=== PATIENT | male | born 1960 | race Asian ===

== ENCOUNTER 2019-11-16 15:03 | Inpatient (IN) | payer SELFPAY ==
[~2019-11-16] VITALS: Ht 177.8 cm; Wt 100.6 kg
--- NOTE | 2019-11-16 15:56 | NUR ---
PT UP TO RESTROOM WITH URINE CUP. VERBALIZES UNDERSTANDING OF INSTRUCTIONS FOR COLLECTION. DENIES ANY NEEDS AT THIS TIME.
--- NOTE | 2019-11-16 16:10 | NUR ---
PT ABLE TO PROVIDE URINE SAMPLE, COLLECTED AND SENT AT THIS TIME. BLADDER SCAN REVEALED 0ML RETENTION. PT DENIES ANY NEEDS OR CONCERNS AT THIS TIME. CALL LIGHT IN REACH.
[2019-11-16 16:25] LABS: MICROSCOPIC AUTO
[2019-11-16 16:26] LABS: BASOPHILS # (AUTO) 0.03 x10^3/uL (0-0.1); BASOPHILS % (AUTO) 0 % (0-1); EOSINOPHILS # (AUTO) 0.02 x10^3/uL (0-0.4); EOSINOPHILS % (AUTO) 0 % (1-7); LYMPHOCYTES # (AUTO) 0.68 x10^3/uL (1-3.4); LYMPHOCYTES % (AUTO) 5 % (22-44); MD NO; MEAN CORPUSCULAR HGB CONC 31.8 g/dL (33.2-36.2); MEAN CORPUSCULAR VOLUME 81.7 fL (81-97); MEAN PLATELET VOLUME 7.4 fL (7.4-10.4); MONOCYTES # (AUTO) 1.02 x10^3/uL (0.2-0.8); MONOCYTES % (AUTO) 7 % (2-9); NEUTROPHILS # (AUTO) 12.73 x10^3/uL (1.8-6.8); NEUTROPHILS % (AUTO) 88 % (42-75); PLATELET COUNT 357 x10^3/uL (130-400); RED BLOOD COUNT 5.36 x10^6/uL (4.38-5.82); RED CELL DISTRIBUTION WIDTH 18.1 % (9.4-14.8)
[2019-11-16 16:33] LABS: ANION GAP 12 mmol/L (5-15); CALCIUM 9.1 mg/dL (8.5-10.1); CHLORIDE 96 mmol/L (98-107)
[2019-11-16] MEDS ORDERED: LIDOCAINE 2%,20 ML JEL.PF.APP MM ONE ×2 (18:24→18:30)
--- NOTE | 2019-11-16 18:37 | NUR ---
CATHETER INSERTION ATTEMPTED, CATHETER COILED AND UNABLE TO ADVANCE. ERP NOTIFIED. NEW ORDERS RECEIVED. UROJET APPLIED. WILL REATTEMPT WITH A COUDE.
--- NOTE | 2019-11-16 19:13 | NUR ---
PT RESTING ON GURNEY, MONITORS IN PLACE, SIDERAILS UP X2, DENIES NEEDS, ROWAN CATH DRAINING, CALL LIGHT WITHIN REACH.
[2019-11-16] MEDS ORDERED: BISACODYL 10 MG SUPP PR PRN (21:00)
[2019-11-16] MEDS ORDERED: ACETAMINOPHEN 325 MG TABLET PO PRN (21:00)
[2019-11-16] MEDS ORDERED: ONDANSETRON 2MG/ML, 2ML IVPush PRN (21:00)
[2019-11-16] MEDS ORDERED: LABETALOL 5MG/ML, 20ML IVPush PRN (21:00)
[2019-11-16] MEDS ORDERED: POLYETHYLENE GLYCOL 17 GM PACKET PO PRN (21:00)
[2019-11-16] MEDS ORDERED: hydrALAzine 20 MG/ML, 1ML IVPush PRN (21:00)
[2019-11-16] MEDS ORDERED: DOCUSATE 100 MG CAPSULE PO PRN (21:00)
[2019-11-16] MEDS ORDERED: ONDANSETRON ODT 4 MG PO PRN (21:00)
[2019-11-16 21:04] VITALS: BP 158/92
[2019-11-16] MEDS: CEFTRIAXONE PMX 1GM/50ML 50 ML IV SCH (21:42)
[2019-11-16] MEDS: HEPARIN 5,000 UNITS/ML, 1ML SQ SCH (21:42)
[2019-11-16] MEDS: SODIUM CHLORIDE 0.9% 1,000 ML IV SCH (21:42)
[2019-11-17 01:56] VITALS: BP 114/67
[2019-11-17 04:59] LABS: ANION GAP 11 mmol/L (5-15); CALCIUM 8.3 mg/dL (8.5-10.1); CHLORIDE 104 mmol/L (98-107); CREATININE 2.34 mg/dL (0.7-1.3)
[2019-11-17 05:04] LABS: BASOPHILS # (AUTO) 0.03 x10^3/uL (0-0.1); BASOPHILS % (AUTO) 0 % (0-1); EOSINOPHILS # (AUTO) 0.19 x10^3/uL (0-0.4); EOSINOPHILS % (AUTO) 2 % (1-7); LYMPHOCYTES # (AUTO) 1.07 x10^3/uL (1-3.4); LYMPHOCYTES % (AUTO) 11 % (22-44); MD NO; MEAN CORPUSCULAR HGB CONC 31.9 g/dL (33.2-36.2); MEAN CORPUSCULAR VOLUME 81.3 fL (81-97); MEAN PLATELET VOLUME 7.7 fL (7.4-10.4); MONOCYTES # (AUTO) 1.07 x10^3/uL (0.2-0.8); MONOCYTES % (AUTO) 11 % (2-9); NEUTROPHILS % (AUTO) 76 % (42-75); PLATELET COUNT 281 x10^3/uL (130-400); RED BLOOD COUNT 4.57 x10^6/uL (4.38-5.82); RED CELL DISTRIBUTION WIDTH 18.3 % (9.4-14.8)
[2019-11-17] MEDS: SODIUM CHLORIDE 0.9% 1,000 ML IV SCH ×3 (05:37→22:00)
[2019-11-17] MEDS: HEPARIN 5,000 UNITS/ML, 1ML SQ SCH ×3 (05:37→20:49)
[2019-11-17 07:05] VITALS: BP 118/68
[2019-11-17 12:46] VITALS: BP 117/64
[2019-11-17 19:54] VITALS: BP 114/72
[2019-11-17] MEDS: CEFTRIAXONE PMX 1GM/50ML 50 ML IV SCH (20:49)
[2019-11-18 01:27] VITALS: BP 134/77
[2019-11-18 04:48] LABS: BASOPHILS # (AUTO) 0.09 x10^3/uL (0-0.1); BASOPHILS % (AUTO) 2 % (0-1); EOSINOPHILS # (AUTO) 0.25 x10^3/uL (0-0.4); EOSINOPHILS % (AUTO) 4 % (1-7); LYMPHOCYTES # (AUTO) 1.13 x10^3/uL (1-3.4); LYMPHOCYTES % (AUTO) 20 % (22-44); MD NO; MEAN CORPUSCULAR HEMOGLOBIN 26.1 pg (27.5-34.5); MEAN CORPUSCULAR HGB CONC 31.8 g/dL (33.2-36.2); MEAN CORPUSCULAR VOLUME 82.1 fL (81-97); MEAN PLATELET VOLUME 7.4 fL (7.4-10.4); MONOCYTES # (AUTO) 0.68 x10^3/uL (0.2-0.8); MONOCYTES % (AUTO) 12 % (2-9); NEUTROPHILS # (AUTO) 3.57 x10^3/uL (1.8-6.8); NEUTROPHILS % (AUTO) 62 % (42-75); PLATELET COUNT 275 x10^3/uL (130-400); RED BLOOD COUNT 4.16 x10^6/uL (4.38-5.82); RED CELL DISTRIBUTION WIDTH 18.3 % (9.4-14.8)
[2019-11-18 04:55] LABS: ANION GAP 8 mmol/L (5-15); CALCIUM 8.1 mg/dL (8.5-10.1); CHLORIDE 113 mmol/L (98-107)
[2019-11-18 04:56] LABS: CREATININE 1.01 mg/dL (0.7-1.3)
[2019-11-18] MEDS: SODIUM CHLORIDE 0.9% 1,000 ML IV SCH ×2 (05:08→14:00)
[2019-11-18] MEDS: HEPARIN 5,000 UNITS/ML, 1ML SQ SCH ×2 (05:08→13:00)
[2019-11-18] MEDS ORDERED: TAMS-11 PO (08:50)
[2019-11-18 08:54] VITALS: BP 129/78
[2019-11-18] MEDS ORDERED: CEFD300C37 PO ×2 (09:08)
[2019-11-18 11:12] LABS: MICROSCOPIC AUTO
[2019-11-18 13:12] VITALS: BP 132/76
== END 2019-11-18 14:58 | disposition home or self-care (01) | DRG 872 ==
LOC: ED 17:41 → EDIP 19:29 → 4WST 20:45 → DCLOUNGE 11-18 14:50
PROVIDERS: ADMIT Family Medicine; ATTEND Family Medicine
DX: A41.9 Sepsis, unspecified organism (principal); E87.1 Hypo-osmolality and hyponatremia; E87.2 Acidosis; N13.8 Other obstructive and reflux uropathy; N17.9 Acute kidney failure, unspecified; F12.90 Cannabis use, unspecified, uncomplicated; I10 Essential (primary) hypertension; N30.91 Cystitis, unspecified with hematuria; N40.1 Benign prostatic hyperplasia with lower urinary tract symptoms; R33.8 Other retention of urine; Z80.1 Family history of malignant neoplasm of trachea, bronchus and lung; Z79.899 Other long term (current) drug therapy
CPT/HCPCS: 36415; 51702; 74176; 80048; 81001; 82570; 83735; 84100; 84300; 85025; 87040; 87086; 99285; G0378; J0696; J1644; J7030

== ENCOUNTER 2019-11-28 16:17 | Emergency (ER) | payer SELFPAY ==
[~2019-11-28 16:17] MED LIST: CEFD300C37 PO; TAMS-11 PO
--- NOTE | 2019-11-28 16:43 | NUR ---
PT AMBULATORY TO ROOM 14 W/ C/O LOWER PELVIC PAIN. STATES HE HAS NOT URINATED AT ALL SINCE YESTERDAY. DENIES DRIBBLES OF URINE. PT STATES HE IS ALSO MORE FIRM AND ROUNDED. BLADDER SCAN PERFORMED >16 ML READ. PT RESTING ON GURNEY. AWAITING ERP ASSESSMENT.
[2019-11-28] MEDS ORDERED: HYDROmorphone 1 MG/ML, 1ML INJ ONE (17:09)
[2019-11-28 17:10] LABS: BASOPHILS # (AUTO) 0.02 x10^3/uL (0-0.1); BASOPHILS % (AUTO) 0 % (0-1); EOSINOPHILS # (AUTO) 0.13 x10^3/uL (0-0.4); EOSINOPHILS % (AUTO) 2 % (1-7); LYMPHOCYTES # (AUTO) 0.63 x10^3/uL (1-3.4); LYMPHOCYTES % (AUTO) 8 % (22-44); MD NO; MEAN CORPUSCULAR HEMOGLOBIN 26.5 pg (27.5-34.5); MEAN CORPUSCULAR HGB CONC 31.8 g/dL (33.2-36.2); MEAN CORPUSCULAR VOLUME 83.4 fL (81-97); MEAN PLATELET VOLUME 7.4 fL (7.4-10.4); MONOCYTES # (AUTO) 0.53 x10^3/uL (0.2-0.8); MONOCYTES % (AUTO) 7 % (2-9); NEUTROPHILS # (AUTO) 6.62 x10^3/uL (1.8-6.8); NEUTROPHILS % (AUTO) 84 % (42-75); PLATELET COUNT 354 x10^3/uL (130-400); RED BLOOD COUNT 4.73 x10^6/uL (4.38-5.82); RED CELL DISTRIBUTION WIDTH 18.6 % (9.4-14.8)
--- NOTE | 2019-11-28 17:12 | NUR ---
PT PULLED OUT ROWAN CATHETER YESTERDAY. ONCE ROWAN INSERTED PER POLICY PT STARTED SCREAMING IN PAIN YELLING "IT'S BURNING OH GOD IT'S BURNING". ERP DR. ARCEO NOTIFIED. PT MEDICATED PER AUG.
[2019-11-28 17:19] LABS: ALBUMIN 3.9 g/dL (3.4-5.0); ANION GAP 5 mmol/L (5-15); CALCIUM 9.1 mg/dL (8.5-10.1); CHLORIDE 109 mmol/L (98-107); CREATININE 1.19 mg/dL (0.7-1.3)
--- NOTE | 2019-11-28 17:20 | NUR ---
PT MEDICATED PER AUG. [facility]
[2019-11-28] MEDS ORDERED: PLEASE ENTER ALLERGIES MC SCH (17:30)
[2019-11-28] MEDS ORDERED: HYDROmorphone 1 MG/ML, 1ML INJ IM ONE (17:30)
[2019-11-28 17:48] LABS: MICROSCOPIC AUTO
--- NOTE | 2019-11-28 17:48 | NUR ---
PT RESTING ON GURNEY. NADN. [place].
--- NOTE | 2019-11-28 18:18 | NUR ---
PT CHART REVIEWED AND PLACED FOR RECHECK.
--- NOTE | 2019-11-28 18:28 | NUR ---
PT PROVIDED W/ EDUCATION FOR [facility] FOR ROWAN AND PROVIDED W/ LEG BAG.
[2019-11-28 18:41] VITALS: BP 147/82
--- NOTE | 2019-11-28 18:41 | NUR ---
PT EAGER TO BE DC'D. CHANGED INTO CLOTHES AND IS AWAITING RE-EVAL BY ERP.
--- NOTE | 2019-11-28 18:57 | NUR ---
REPORT GIVEN TO TASHI MASCORRO RN'S.
--- NOTE | 2019-11-28 19:16 | NUR ---
LATE ENTRY FOR 1906: RECEVIED REPORT FROM GABY QUIÑONES. PT SITTING AT EDGE OF BED, NEW ROWAN BELONGINGS IN HAND. MAKING STATEMENTS ABOUT WHEN HE WILL BE ABLE TO LEAVE. AT BEDSIDE.
== END 2019-11-28 19:20 | disposition home or self-care (01) ==
LOC: ED 18:45
DX: N04.1 Nephrotic syndrome with focal and segmental glomerular lesions (principal); R33.9 Retention of urine, unspecified
CPT/HCPCS: 36415; 51702; 80048; 81001; 82040; 85025; 96372; 99284; J1170

== ENCOUNTER 2019-12-09 16:30 | Emergency (ER) | payer OTHER ==
[~2019-12-09] VITALS: Ht 177.8 cm; Wt 94.7 kg
--- NOTE | 2019-12-09 16:35 | NUR ---
PT AMBULATES WELL FROM TRIAGE TO ROOM.
--- NOTE | 2019-12-09 17:16 | NUR ---
THIS IS A 59 YO MALE COMING IN FOR URINARY RETENTION. PATIENT WAS SEEN HERE LAST WEEK FOR SAME AND HAD URINARY CATHETER PLACED, LAST NIGHT WHILE SHOWERING ACCIDENTALLY RIPPED OUT. SMALL AMOUNT OF BLOOD WHEN RIPPED OUT PER PATIENT. STILL HAS YET TO BE SEEN WITH UROLOGIST, PER PATIENT "THEY HAD TO RESCHEDULE MY APPOINTMENT". PAMELA RAO TO ROOM FOR EVAL. SPO2 AND BP MONITORING IN PLACE. BLADDER SCAN COMPLETE, STATES "GREATER THAN 200ML". PA NOTIFIED
[2019-12-09 17:28] LABS: BASOPHILS # (AUTO) 0.04 x10^3/uL (0-0.1); BASOPHILS % (AUTO) 1 % (0-1); EOSINOPHILS # (AUTO) 0.04 x10^3/uL (0-0.4); EOSINOPHILS % (AUTO) 1 % (1-7); LYMPHOCYTES # (AUTO) 0.95 x10^3/uL (1-3.4); LYMPHOCYTES % (AUTO) 18 % (22-44); MD NO; MEAN CORPUSCULAR HEMOGLOBIN 26.1 pg (27.5-34.5); MEAN CORPUSCULAR HGB CONC 31.8 g/dL (33.2-36.2); MEAN PLATELET VOLUME 7.2 fL (7.4-10.4); MONOCYTES # (AUTO) 0.38 x10^3/uL (0.2-0.8); MONOCYTES % (AUTO) 7 % (2-9); NEUTROPHILS # (AUTO) 3.83 x10^3/uL (1.8-6.8); NEUTROPHILS % (AUTO) 73 % (42-75); PLATELET COUNT 350 x10^3/uL (130-400); RED BLOOD COUNT 5.06 x10^6/uL (4.38-5.82)
[2019-12-09 17:35] LABS: ANION GAP 6 mmol/L (5-15); CALCIUM 9.2 mg/dL (8.5-10.1); CHLORIDE 110 mmol/L (98-107); CREATININE 0.99 mg/dL (0.7-1.3)
[2019-12-09 17:36] LABS: ALANINE AMINOTRANSFERASE 23 U/L (12-78); ALBUMIN 3.8 g/dL (3.4-5.0)
[2019-12-09 17:38] LABS: ALKALINE PHOSPHATASE 71 U/L (45-117); BILIRUBIN,TOTAL 0.7 mg/dL (0.2-1.0); TOTAL PROTEIN 7.6 g/dL (6.4-8.2)
[2019-12-09] MEDS ORDERED: LIDOCAINE 2%,20 ML JEL.PF.APP MM ONE ×2 (17:54→18:00)
[2019-12-09] MEDS ORDERED: PLEASE ENTER ALLERGIES MC SCH (18:00)
--- NOTE | 2019-12-09 18:20 | NUR ---
16 [address] COUDE ROWAN CATHETER PLACED, PATIENT TOLERATED WELL. UA COLLECTED AND SENT
--- NOTE | 2019-12-09 18:20 | NUR ---
APPROX 900ML DRAINED FROM BLADDER
[2019-12-09 18:39] LABS: MICROSCOPIC AUTO
--- NOTE | 2019-12-09 18:52 | NUR ---
REPORT FROM RAMEZ GRIFFIN, ASSUMING CARE OF PT AT THIS TIME.
--- NOTE | 2019-12-09 18:55 | NUR ---
REPORT GIVEN TO GABY THAYER. PLAN OF CARE DISCUSSED
[2019-12-09 19:33] VITALS: BP 133/81
--- NOTE | 2019-12-09 19:47 | NUR ---
Patient/Caregiver given discharge instructions and they have confirmed that they understand the instructions. Patient ambulatory with steady gait. pt educated on proper barrera care prior to dc and provided with larger barrera bag at pt request.
== END 2019-12-09 19:48 | disposition home or self-care (01) ==
LOC: ED 17:48
DX: N30.00 Acute cystitis without hematuria (principal); N40.1 Benign prostatic hyperplasia with lower urinary tract symptoms; R33.8 Other retention of urine
CPT/HCPCS: 36415; 51702; 80053; 81001; 85025; 87077; 87086; 87186; 99284

== ENCOUNTER 2020-11-02 17:38 | Emergency (ER) | payer MEDICAID ==
[~2020-11-02] VITALS: Ht 180.3 cm; Wt 104.0 kg
--- NOTE | 2020-11-02 17:44 | NUR ---
teacher asst: atytempted to call pt for triage, no answer in lobby
[2020-11-02 20:23] LABS: BASOPHILS % (AUTO) 1 % (0-1); EOSINOPHILS % (AUTO) 0 % (1-7); LYMPHOCYTES % (AUTO) 13 % (22-44); MD NO; MEAN CORPUSCULAR HGB CONC 32.4 g/dL (33.2-36.2); MEAN PLATELET VOLUME 7.5 fL (7.4-10.4); MONOCYTES % (AUTO) 6 % (2-9); NEUTROPHILS % (AUTO) 80 % (42-75); PLATELET COUNT 337 x10^3/uL (130-400); RED BLOOD COUNT 5.19 x10^6/uL (4.38-5.82); RED CELL DISTRIBUTION WIDTH 16.2 % (9.4-14.8)
[2020-11-02 20:25] LABS: ALBUMIN 3.9 g/dL (3.4-5.0); ANION GAP 6 mmol/L (5-15); CALCIUM 9.2 mg/dL (8.5-10.1); CHLORIDE 106 mmol/L (98-107); CREATININE 0.96 mg/dL (0.7-1.3)
[2020-11-02 20:29] LABS: TROPONIN I < 0.015 ng/mL (0.000-0.045)
[2020-11-02] MEDS ORDERED: LABETALOL 5MG/ML, 20ML ONE ×2 (20:55→20:58)
[2020-11-02] MEDS ORDERED: LABETALOL 5MG/ML, 20ML IVPush ONE (21:00)
[2020-11-02] MEDS ORDERED: hydrALAzine 20 MG/ML, 1ML IV ONE (22:00)
[2020-11-02] MEDS ORDERED: hydrALAzine 20 MG/ML, 1ML ONE (22:26)
[2020-11-02 22:55] VITALS: BP 164/100
== END 2020-11-02 23:07 | disposition home or self-care (01) ==
LOC: ED 18:09
DX: M10.071 Idiopathic gout, right ankle and foot (principal); I10 Essential (primary) hypertension; R94.31 Abnormal electrocardiogram [ECG] [EKG]
CPT/HCPCS: 36415; 71045; 73630; 80048; 82040; 84484; 84550; 85025; 93005; 96374; 96375; 99285; J0360